=== PATIENT | male | born 1960 | race Caucasian/White ===

== ENCOUNTER → 2017-09-12 | Day surgery (SDC) | payer OTHER ==
[~2017-09-12] VITALS: Ht 170.2 cm; Wt 149.7 kg
[~2017-09-12] MED LIST: ALEVE220 MG PO; ASPIR 8181 MG PO; COLCHICINE0.6 MG PO; DEMADEX20 MG PO; FENTANYL PATCH75 MCG TRANSDERM; FLOMAX0.4 MG PO; FLUTICASONE PRO16 GM NASAL; HUMULIN R500 UNIT/M SUBQ; HUMULINU500 SUBQ; K-DUR 20 MEQ T20 MEQ PO; LOSARTAN POTAS100 MG PO; METOLAZONE 2.52.5 M1 PO; NEURONTIN 300300 M1 PO; PERCOCET 10-321 EACH PO; TART CHERRY CA1 EACH PO; TESTOSTERO200 MG/1 M IM; TRAMADOL 50 MG50 MG PO; ULORIC80 MG PO
--- NOTE | ~2017-09-12 | O ---
[facility] [place] [address] OPERATIVE REPORT Name: ERASMO FIELD Room #: REG [facility] M..#: [id number] Admission: 09/12/17 Attend Phys: Gosia Cueva, Discharge: Date of : 62 Report #: [id number] THIS REPORT FOR: //name// CC: Walt Cueva DATE OF SERVICE: 09/12/2017 PREOPERATIVE DIAGNOSIS: Right carpal tunnel syndrome, recurrent. POSTOPERATIVE DIAGNOSIS: Right carpal tunnel syndrome, recurrent. PROCEDURE PERFORMED: Right open carpal tunnel release with nerve wrapping. SURGEON: Gosia Cueva MD ANESTHESIA: General mask anesthesia. ESTIMATED BLOOD LOSS: Minimal. TOURNIQUET TIME: 34 minutes. IMPLANTS USED: AxoGen Avive soft tissue membrane, 3 cm x 4 cm. COMPLICATIONS: None. CONDITION: Stable. DISPOSITION: Recovery room. INDICATIONS: The patient is a 57-year-old male with the above-mentioned diagnosis. He elects for operative treatment. The risks, benefits and alternatives of complications were discussed including but were not limited to infection, damage to vessels or nerves and incomplete relief of his symptoms. Informed consent was obtained. The correct extremity was identified and labeled by myself after verbal confirmation of patient as well as visual confirmation and signed informed consent. DESCRIPTION OF PROCEDURE: The patient was brought back to the operative room, placed on the operating table in supine position. He received preoperative antibiotics. Tourniquet was placed over padding on the patient's right upper extremity. The extremity was sterilely prepped and draped in usual fashion. A final timeout was taken to verify correct patient, operative procedure, operative site, all concurred. The arm was elevated, exsanguinated and the tourniquet inflated. The entire procedure was done with the aid of 3.5 loupe magnification. Next, approximately a 3-4 cm incision was made over the carpal [address] [address] OPERATIVE REPORT Name: ERASMO FIELD Room #: REG [facility].#: [id number] Admission: 09/12/17 Attend Phys: Gosia Cueva, Discharge: Date of : 62 Report #: [id number] tunnel, crossing the wrist crease at oblique angle. Dissection was carried out through subcutaneous tissue with tenotomy scissors. In the mid portion of the incision, a 15 blade was used to incise the transverse carpal ligament. The prior surgical incision was utilized. The nerve was evaluated and was fairly hyperemic. The transverse carpal ligament was extremely thickened. It was completely released from the antebrachial fascia in the forearm all the way to the fat in the palm. Any connections between the nerve and surrounding tissues were dissected using tenotomy scissors. The motor branch was identified and carefully protected. Next, the membrane was placed around the nerve for approximately a 3 cm segment and it was sutured to itself using 6-0 Prolene suture. Wound was thoroughly irrigated. The skin was closed with 4-0 nylon suture. Wound was infiltrated with approximately 5 mL of 0.25% Marcaine. He was placed in a bulky dressing and a volar slab splint. All fingers were pink with brisk cap refill at the conclusion of the case after deflation of the tourniquet. All sponge, needle counts were correct. The patient was transferred to postoperative recovery room in stable condition. By: [id number] Gosia Cueva MD /nt
[2017-09-12 06:43] LABS: CALCIUM 9.1 mg/dL (8.5-10.1); CREATININE 2.5 mg/dL (0.7-1.3)
[2017-09-12 07:42] VITALS: BP 142/77
[2017-09-12 09:18] VITALS: BP 142/77
== END | disposition home or self-care (01) ==
LOC: OR 06:04
PROVIDERS: Orthopaedic Surgery Hand Surgery
DX: G56.01 Carpal tunnel syndrome, right upper limb (principal); E11.9 Type 2 diabetes mellitus without complications; I11.0 Hypertensive heart disease with heart failure; I50.9 Heart failure, unspecified; I25.2 Old myocardial infarction; F32.9 Major depressive disorder, single episode, unspecified; E66.01 Morbid (severe) obesity due to excess calories; Z88.8 Allergy status to other drugs, medicaments and biological substances; Z98.890 Other specified postprocedural states; Z79.4 Long term (current) use of insulin; Z87.442 Personal history of urinary calculi; Z85.841 Personal history of malignant neoplasm of brain; Z79.82 Long term (current) use of aspirin; Z79.899 Other long term (current) drug therapy
CPT/HCPCS: 50010; 50101; 50386; 56526; 56528; 57006; 57091; 62110; 62900; 70005

== ENCOUNTER 2017-10-06 05:35 | Day surgery (SDC) | payer OTHER ==
[~2017-10-06] VITALS: Ht 170.2 cm; Wt 149.7 kg
--- NOTE | ~2017-10-06 | O ---
[facility] [place] [address] OPERATIVE REPORT Name: ERASMO FIELD Room #: DEP [facility] M..#: [id number] Admission: 10/06/17 Attend Phys: Gosia Cueva, Discharge: 10/06/17 Date of : 62 Report #: [id number] THIS REPORT FOR: //name// CC: Walt Cueva DATE OF SERVICE: 10/06/2017 PREOPERATIVE DIAGNOSIS: Right volar wrist wound dehiscence. POSTOPERATIVE DIAGNOSIS: Right volar wrist wound dehiscence. PROCEDURE PERFORMED: Right volar wound exploration with removal of amniotic membrane wrap and flexor tenosynovectomy and wound closure. SURGEON: Gosia Cueva MD ANESTHESIA: General mask anesthesia. ESTIMATED BLOOD LOSS: Minimal. TOURNIQUET TIME: 27 minutes. COMPLICATIONS: None. CONDITION: Stable. DISPOSITION: Recovery room. INDICATIONS: The patient is a 57-year-old male with the above-mentioned diagnosis. He elects for operative treatment. The risks, benefits, alternatives, complications were discussed including but were not limited to infection, damage to vessels or nerves, incomplete relief of his symptoms. Informed consent was obtained. The correct extremity was identified and labeled by myself after verbal confirmation of the patient as well as visual confirmation and signed informed consent. DESCRIPTION OF PROCEDURE: The patient brought to the operating room he received preoperative antibiotics. Tourniquet was placed over padding on the patient's right upper extremity. Right upper extremity was sterilely prepped and draped in usual fashion. Final timeout was taken to verify correct patient, operative procedure, operative site, all concurred. The entire procedure was done with aid of 3.5 times loupe magnification. The arm was elevated, but it was not exsanguinated and the tourniquet inflated. Next, the wound was extended 5 mm, both proximally and distally. The wound measured approximately 5-6 cm. The structure was indeed nerve. The amniotic membrane was removed very [address] [address] OPERATIVE REPORT Name: ERASMO FIELD Room #: DEP [facility] M.R.#: [id number] Admission: 10/06/17 Attend Phys: Gosia Cueva, Discharge: 10/06/17 Date of : 62 Report #: [id number] easily and beneath it, there was a rim of inflammatory tissue. An external neurolysis was performed, removing all this rim of inflammatory tissue around the nerve, proximal and distal to the amniotic membrane. The nerve looked to be in relatively good condition. There was a moderate amount of flexor tenosynovitis, a flexor tenosynovectomy was performed as well. Once this was done, the wound was thoroughly irrigated with 2 liters of antibiotic saline and then the wound edges were reapproximated with 3-0 nylon suture. The wound was dressed with Xeroform and sterile gauze. He was placed in a bulky dressing and a volar slab splint. All fingers were pink with brisk capillary refill at the conclusion of the case after deflation of tourniquet. All sponge, needle counts were correct. The patient transferred to postoperative recovery room in stable condition. By: [id number] Gosia Cueva MD /nt
[2017-10-06 11:32] VITALS: BP 118/75
[2017-10-06 14:23] VITALS: BP 118/75
[2017-10-07 03:08] LABS: GLYCOHEMOGLOBIN (HGB A1C) 6.7 % (4.8-5.6)
== END 2017-10-06 15:14 | disposition home or self-care (01) ==
LOC: TBA 05:35 → OR 05:35
PROVIDERS: Orthopaedic Surgery Hand Surgery
DX: M65.841 Other synovitis and tenosynovitis, right hand (principal); T81.30XA Disruption of wound, unspecified, initial encounter; I11.0 Hypertensive heart disease with heart failure; I50.9 Heart failure, unspecified; I25.2 Old myocardial infarction; E11.9 Type 2 diabetes mellitus without complications; M54.5 Low back pain; G89.29 Other chronic pain; M10.9 Gout, unspecified; Z86.73 Personal history of transient ischemic attack (TIA), and cerebral infarction without residual deficits; Z85.841 Personal history of malignant neoplasm of brain; Z87.442 Personal history of urinary calculi; Z98.890 Other specified postprocedural states; Z79.899 Other long term (current) drug therapy; Z79.4 Long term (current) use of insulin; Z88.8 Allergy status to other drugs, medicaments and biological substances; Z79.82 Long term (current) use of aspirin; Y83.8 Other surgical procedures as the cause of abnormal reaction of the patient, or of later complication, without mention of misadventure at the time of the procedure
CPT/HCPCS: 50010; 50101; 50386; 56524; 57091; 62110; 62900; 70005